=== PATIENT | female | born 1950 | race Caucasian/White ===

== ENCOUNTER 2021-07-17 09:35 | Emergency (ER) | payer MEDICARE, BC ==
[2021-07-17 09:51] VITALS: BP 145/64; PULSE 85
[2021-07-17] MEDS: Sodium Chloride 0.9% 10 ML Syringe FLUSH PRN (09:56)
[2021-07-17] MEDS: Sodium Chloride 0.9% 1,000 ML IV ONE (09:56)
--- NOTE | 2021-07-17 09:56 | EDM.PDOC ---
ED HPI GENERAL MEDICAL PROBLEM - General Chief Complaint: Gastrointestinal Problem Stated Complaint: NAUSEA,S/P KNEE SURGERY Time Seen by Provider: 07/17/21 09:39 Source of Information: Reports: Patient, Family - History of Present Illness INITIAL COMMENTS - FREE TEXT/NARRATIVE: Mar, 71-year-old female, brought here by family with complaints of nausea and dehydration. She underwent right knee replacement on June by Dr. Gian nj at [facility]. She was discharged home on Sunday and has had increased nausea abdominal discomfort likely due to poor intake in conjunction with oxycodone being taken orally. She has chronic renal failure and her daughter states they were very hesitant to discharge her on the but then felt it was appropriate as she was able to maintain intake. She is Covid negative for the test process for her surgery. She has had no other symptoms other than significant dry mouth which is likely attributed to anesthesia, oxycodone, and her history of Sjogren's syndrome with poor oral intake. She had a normal bowel movement today and states her urine has been appearing normal. Onset: Gradual Onset Date: 07/15/21 Duration: Day(s):, Getting Worse Location: Reports: Abdomen Quality: Reports: Pressure Severity: Severe Improves with: Reports: None Worsens with: Reports: Movement - Related Data Allergies Allergy/AdvReac Type Severity Reaction Status Date / Time aspirin Allergy Other Verified 07/17/21 10:04 promethazine HCl Allergy Anaphylactic Verified 07/17/21 10:04 [From Phenergan] Shock Home Meds: Home Meds ALPRAZolam [Alprazolam] 0.125 - 0.25 tab PO TID PRN 08/04/15 [History] Calcium Carbonate/Vitamin D3 [Calcium 500 + Vit D 400] 1 tab PO BIDMEALS [History] Metoprolol Succinate [Toprol XL] 50 mg PO DAILY 08/04/15 [History] Rosuvastatin Calcium [Crestor] 10 tab PO BEDTIME 08/04/15 [History] Acetaminophen 650 mg PO Q6H PRN 07/17/21 [History] Apixaban [Eliquis] 2.5 mg PO BID 07/17/21 [History] Cranberry Fruit Extract [Cranberry] 425 mg PO DAILY 07/17/21 [History] Denosumab [Prolia] 60 mg SQ ASDIRECTED 07/17/21 [History] Escitalopram Oxalate [Lexapro] 5 mg PO BEDTIME 07/17/21 [History] Hydroxychloroquine [Plaquenil] 200 mg PO MOWEFRSA 07/17/21 [History] Memantine HCl [Namenda] 10 mg PO BID 07/17/21 [History] Naloxone HCl [Narcan] 1 spray ALLEN ASDIRECTED PRN 07/17/21 [History] Ondansetron [Ondansetron Odt] 4 mg PO Q6H 2 Days #8 tab.rapdis 07/17/21 [Rx] Pantoprazole Sodium [Protonix] 40 mg PO ACBREAKFAST 07/17/21 [History] Sennosides/Docusate Sodium [Senna Plus 8.6-50 mg Tablet] 1 tab PO BID 07/17/21 [History] oxyCODONE 5 - 10 mg PO Q4H PRN 07/17/21 [History] polyethylene glycoL 3350 [MiraLAX] 1 pkt PO DAILY PRN 07/17/21 [History] traZODone 50 mg PO BEDTIME 07/17/21 [History] Past Medical History Cardiovascular History: Reports: CAD, Heart Failure, High Cholesterol Gastrointestinal History: Reports: Gastritis, GERD Other Gastrointestinal History: Casillas's esophagus Genitourinary History: Reports: Other (See Below) Other Genitourinary History: Chronic kidney disease, hypertensive kidney disease Musculoskeletal History: Reports: Osteoarthritis Other Musculoskeletal History: osteopenia Neurological History: Reports: Other (See Below) (mild cognitive impairment, Sjogrens) Other Psychiatric History: insomnia, high risk medication use Other Hematologic History: Sjogren's disease Other Dermatologic History: keratosis - Past Surgical History Musculoskeletal Surgical History: Reports: Knee Replacement - Past Imaging History Past Imaging History: Reports: MRI, Xray Social & Family History - Family History Family Medical History: No Pertinent Family History ED ROS GENERAL - Review of Systems Review Of Systems: Comprehensive ROS is negative, except as noted in HPI. ED EXAM, GENERAL - Physical Exam Exam: See Below Free Text/Narrative:: Alert, oriented, seeming somewhat tired. There is no cyanosis nor pallor noted. She has dry tacky oral membranes combination of her medication and Sjogren's syndrome. PERRLA no icterus no injection. Neck is soft supple with no lymphadenopathy JVD or bruit appreciated. Thorax is clear mildly diminished basis with no wheezes nor crackles. Cardiac is S1-S2 with no appreciated murmur. Abdomen is soft bowel sounds are present there is pressure over the epigastric region with mild nausea complained of. Right lower extremity has compression over a intact dressing to the anterior right knee with +2 edema at the ankle. Left lower extremity is benign in any findings with +1 edema at the most. Skin is warm and dry to both lower extremities. Course - Vital Signs Last Recorded V/S: Last Vital Signs Temp 97.6 F 07/17/21 09:45 Pulse 85 07/17/21 09:45 Resp 20 07/17/21 09:45 BP 145/64 H 07/17/21 09:45 Pulse Ox 98 07/17/21 09:45 - Orders/Labs/Meds Orders: Active Orders 24 hr Category Date Time Status Peripheral IV Care [RC] . DIRECTED Care 07/17/21 09:41 Active CULTURE URINE [RM] Stat Lab 07/17/21 10:29 Received Sodium Chloride 0.9% [Saline Flush] Med 07/17/21 09:40 Active 10 ml FLUSH Q8HR PRN Peripheral IV Insertion Adult [OM.PC] Stat Oth 07/17/21 09:41 Ordered Medication Orders Sodium Chloride (Sodium Chloride 0.9% 10 Ml Syringe) 10 ml FLUSH Q8HR PRN PRN Reason: keep vein open Last Admin: 07/17/21 09:56 Dose: 10 ml Documented by: MARCELA Labs: Laboratory Tests 07/17/21 07/17/21 07/17/21 Range/Units 09:50 09:50 09:50 WBC 9.35 (5.00-10.00) 10^3/uL RBC 3.17 L (3.80-5.50) 10^6/uL Hgb 9.1 L (12.0-16.0) g/dL Hct 28.0 L (37.0-47.0) % MCV 88.3 (82.0-92.0) fL MCH 28.7 (27.0-31.0) pg MCHC 32.5 (32.0-36.0) g/dL RDW 12.5 (11.5-14.5) % Plt Count 126 L (150-400) 10^3/uL MPV 10.6 H (7.4-10.4) fL Immature Gran % (Auto) 0.3 (0.0-5.0) % Neut % (Auto) 89.6 H (50.0-70.0) % Lymph % (Auto) 3.0 L (20.0-40.0) % [place] % (Auto) 5.5 (2.0-8.0) % Eos % (Auto) 1.5 (1.0-3.0) % Baso % (Auto) 0.1 (0.0-1.0) % Neut # (Auto) 8.38 H (2.50-7.00) 10^3/uL Lymph # (Auto) 0.28 L (1.00-4.00) 10^3/uL [place] # (Auto) 0.51 (0.10-0.80) 10^3/uL Eos # (Auto) 0.14 (0.10-0.30) 10^3/uL Baso # (Auto) 0.01 (0.00-0.10) 10^3/uL Immature Gran # (Auto) 0.03 (0.00-0.50) 10^3/uL Sodium 131 L (136-145) mmol/L Potassium 4.1 (3.5-5.1) mmol/L Chloride 97 L (98-107) mmol/L Carbon Dioxide 23.6 (21.0-32.0) mmol/L Anion Gap 14.5 (5-15) mmol/L BUN 16 (7-18) mg/dL Creatinine 0.86 (0.51-1.17) mg/dL Est Cr Clr Drug Dosing TNP Estimated GFR (MDRD) > 60 mL/min Glucose 113 (70-140) mg/dL Calcium 8.4 L (8.7-10.3) mg/dL Total Bilirubin 0.7 (0.2-1.0) mg/dL AST 31 (15-37) U/L ALT 16 (14-63) U/L Alkaline Phosphatase 44 L (46-116) U/L B-Natriuretic Peptide 380 H (0-100) pg/mL Total Protein 6.2 L (6.4-8.2) g/dL Albumin 2.84 L (3.40-5.00) g/dL Specimen Type Urine Color (YELLOW) Urine Appearance (CLEAR) Urine pH (5.0-9.0) Ur Specific [place] (1.005-1.030) Urine Protein (NEGATIVE) mg/dL Urine Glucose (UA) (NEGATIVE) mg/dL Urine Ketones (NEGATIVE) mg/dL Urine Occult Blood (NEGATIVE) Urine Nitrite (NEGATIVE) Urine Bilirubin (NEGATIVE) Urine Urobilinogen (0.2-1.0) E.U./dL Ur Leukocyte Esterase (NEGATIVE) Urine RBC (0-5) /HPF Urine WBC (0-5) /HPF Ur Epithelial Cells /LPF Urine Bacteria (NONE TO FEW) /HPF 07/17/21 Range/Units 10:29 WBC (5.00-10.00) 10^3/uL RBC (3.80-5.50) 10^6/uL Hgb (12.0-16.0) g/dL Hct (37.0-47.0) % MCV (82.0-92.0) fL MCH (27.0-31.0) pg MCHC (32.0-36.0) g/dL RDW (11.5-14.5) % Plt Count (150-400) 10^3/uL MPV (7.4-10.4) fL Immature Gran % (Auto) (0.0-5.0) % Neut % (Auto) (50.0-70.0) % Lymph % (Auto) (20.0-40.0) % [place] % (Auto) (2.0-8.0) % Eos % (Auto) (1.0-3.0) % Baso % (Auto) (0.0-1.0) % Neut # (Auto) (2.50-7.00) 10^3/uL Lymph # (Auto) (1.00-4.00) 10^3/uL [place] # (Auto) (0.10-0.80) 10^3/uL Eos # (Auto) (0.10-0.30) 10^3/uL Baso # (Auto) (0.00-0.10) 10^3/uL Immature Gran # (Auto) (0.00-0.50) 10^3/uL Sodium (136-145) mmol/L Potassium (3.5-5.1) mmol/L Chloride (98-107) mmol/L Carbon Dioxide (21.0-32.0) mmol/L Anion Gap (5-15) mmol/L BUN (7-18) mg/dL Creatinine (0.51-1.17) mg/dL Est Cr Clr Drug Dosing Estimated GFR (MDRD) mL/min Glucose (70-140) mg/dL Calcium (8.7-10.3) mg/dL Total Bilirubin (0.2-1.0) mg/dL AST (15-37) U/L ALT (14-63) U/L Alkaline Phosphatase (46-116) U/L B-Natriuretic Peptide (0-100) pg/mL Total Protein (6.4-8.2) g/dL Albumin (3.40-5.00) g/dL Specimen Type Urincc Urine Color Yellow (YELLOW) Urine Appearance Clear (CLEAR) Urine pH 7.0 (5.0-9.0) Ur Specific [place] 1.015 (1.005-1.030) Urine Protein Negative (NEGATIVE) mg/dL Urine Glucose (UA) Negative (NEGATIVE) mg/dL Urine Ketones Negative (NEGATIVE) mg/dL Urine Occult Blood Negative (NEGATIVE) Urine Nitrite Negative (NEGATIVE) Urine Bilirubin Negative (NEGATIVE) Urine Urobilinogen 0.2 (0.2-1.0) E.U./dL Ur Leukocyte Esterase Trace H (NEGATIVE) Urine RBC Not seen (0-5) /HPF Urine WBC 5-10 H (0-5) /HPF Ur Epithelial Cells Few /LPF Urine Bacteria Few (NONE TO FEW) /HPF Meds: Medications Generic Name Dose Route Start Last Admin Trade Name Freq PRN Reason Stop Dose Admin Sodium Chloride 10 ml 07/17/21 09:40 07/17/21 09:56 Sodium Chloride 0.9% 10 Ml Syringe FLUSH 10 ml Q8HR PRN Administration keep vein open Discontinued Medications Generic Name Dose Route Start Last Admin Trade Name Freq PRN Reason Stop Dose Admin Acetaminophen 1,000 mg 07/17/21 10:40 07/17/21 10:46 Acetaminophen 500 Mg Tab PO 07/17/21 10:41 1,000 mg ONETIME ONE Administration Sodium Chloride 1,000 mls @ 999 mls/hr 07/17/21 09:41 07/17/21 09:56 Normal Saline IV 07/17/21 10:41 999 mls/hr .BOLUS ONE Administration Ondansetron HCl 4 mg 07/17/21 09:53 07/17/21 09:57 Ondansetron 4 Mg/2 Ml Sdv IVPUSH 07/17/21 09:54 4 mg ONETIME ONE Administration Ondansetron HCl 12 mg 07/17/21 10:42 07/17/21 10:56 Ondansetron 4 Mg Tab.Dis PO 07/17/21 10:43 Not Given ONETIME ONE - Re-Assessments/Exams Free Text/Narrative Re-Assessment/Exam: 07/17/21 10:53 History of anxiety seemingly worsened with procedures and hospitalization may be contributing to this as well as GI irritation secondary of oxycodone with limited intake. This was all discussed with her daughter and family members. They acknowledge understanding. Departure - Departure Time of Disposition: 10:50 Disposition: Home, Self-Care 01 Condition: Good Clinical Impression: Status post right knee replacement, Postoperative anemia, Nausea - Discharge Information *PRESCRIPTION DRUG MONITORING PROGRAM REVIEWED*: Not Applicable *COPY OF PRESCRIPTION DRUG MONITORING REPORT IN PATIENT SIVA: Not Applicable Prescriptions: Ondansetron [Ondansetron Odt] 4 mg PO Q6H 2 Days #8 tab.rapdis Instructions: Nausea, Adult, [place], Pain Medicine Instructions, [id number] Referrals: Marina Quinn PA-C [Primary Care Provider] - Forms: ED Department Discharge Additional Instructions: Your lab test today show that your kidney function is within normal limits and there is no evidence of dehydration. The heart failure number is slightly elevated as it was in the hospital and should return to your baseline/normal over the next 24 to 48 hours. The Zofran we gave seems to be helping your nausea and will provide you with doses to be taken as needed, 6 to 8 hours, after your discharge. You can limit the use of the oxycodone as you seem to be in good management of your pain at this time, focusing on Tylenol. You may reinstitute your Xanax for anxiety. If you were to use that along with your oxycodone it would add to the sedation aspect you experience with the oxycodone alone. As long as her pain remains controlled as is, since she has had no narcotics since last night, hopefully Tylenol and icing/heating the area as directed on your discharge should keep this within limits. Continue all of your home medications as directed other than limiting the oxycodone is much as possible. Follow-up as directed for recheck on your laboratory analysis, kidney function, and BNP, as you are scheduled for this upcoming week. Contact the surgical center if any concerns with the knee specifically. Sepsis Event Note (ED) - Focused Exam Vital Signs: Vital Signs Temp Pulse Resp BP Pulse Ox 07/17/21 09:45 97.6 F 85 20 145/64 H 98 - Problem List & Annotations (1) Dehydration SNOMED Code(s): 04946442 Code(s): E86.0 - DEHYDRATION Status: Acute Priority: High Current Visit: Yes (2) Status post right knee surgery SNOMED Code(s): 662645291 Code(s): Z98.890 - OTHER SPECIFIED POSTPROCEDURAL STATES Status: Acute Priority: High Current Visit: Yes (3) Status post right knee replacement SNOMED Code(s): 8388602901060, 145334628, 9221099125122 Code(s): Z96.651 - PRESENCE OF RIGHT ARTIFICIAL KNEE JOINT Status: Acute Priority: High Current Visit: Yes (4) Nausea SNOMED Code(s): 080083027 Code(s): R11.0 - NAUSEA Status: Acute Priority: High Current Visit: Yes (5) Postoperative anemia SNOMED Code(s): 808187179, 468907375 Code(s): D64.9 - ANEMIA, UNSPECIFIED Status: Acute Priority: High Current Visit: Yes - Problem List Review Problem List Initiated/Reviewed/Updated: Yes - My Orders Last 24 Hours: My Active Orders 07/17/21 09:40 Sodium Chloride 0.9% [Saline Flush] 10 ml FLUSH Q8HR PRN 07/17/21 09:41 Peripheral IV Care [RC] . DIRECTED Peripheral IV Insertion Adult [OM.PC] Stat 07/17/21 10:29 CULTURE URINE [RM] Stat - Assessment/Plan Last 24 Hours: My Active Orders 07/17/21 09:40 Sodium Chloride 0.9% [Saline Flush] 10 ml FLUSH Q8HR PRN 07/17/21 09:41 Peripheral IV Care [RC] . DIRECTED Peripheral IV Insertion Adult [OM.PC] Stat 07/17/21 10:29 CULTURE URINE [RM] Stat Plan: Your lab test today show that your kidney function is within normal limits and there is no evidence of dehydration. The heart failure number is slightly elevated as it was in the hospital and should return to your baseline/normal over the next 24 to 48 hours. The Zofran we gave seems to be helping your nausea and will provide you with doses to be taken, 6 to 8 hours, as needed after your discharge. You can limit the use of the oxycodone as you seem to be in good management of your pain at this time, focusing on Tylenol. You may reinstitute your Xanax for anxiety. If you were to use that along with your oxycodone it would add to the sedation aspect you experience with the oxycodone alone. As long as her pain remains controlled as is, since she has had no narcotics since last night, hopefully Tylenol and icing/heating the area as directed on your discharge should keep this within limits. Continue all of your home medications as directed other than limiting the oxycodone is much as possible. Follow-up as directed for recheck on your laboratory analysis, kidney function, and BNP, as you are scheduled for this upcoming week. Contact the surgical center if any concerns with the knee specifically.
[2021-07-17] MEDS: Ondansetron 4 MG/2 ML SDV IVPUSH ONE (09:57)
[2021-07-17 10:15] LABS: ANION GAP 14.5 mmol/L (5-15); CHLORIDE,CL 97 mmol/L (98-107); SODIUM,NA 131 mmol/L (136-145)
[2021-07-17] MEDS: Acetaminophen 500 MG Tab PO ONE (10:46)
[2021-07-17] MEDS: Ondansetron 4 MG Tab.DIS PO ONE (10:56)
== END 2021-07-17 11:10 | disposition home or self-care (01) ==
LOC: KA.ED 09:35
DX: R11.0 Nausea (principal); I13.0 Hypertensive heart and chronic kidney disease with heart failure and stage 1 through stage 4 chronic kidney disease, or unspecified chronic kidney disease; N18.9 Chronic kidney disease, unspecified; I50.9 Heart failure, unspecified; D63.1 Anemia in chronic kidney disease; I25.10 Atherosclerotic heart disease of native coronary artery without angina pectoris; E78.00 Pure hypercholesterolemia, unspecified; Z79.01 Long term (current) use of anticoagulants; Z88.8 Allergy status to other drugs, medicaments and biological substances; Z79.899 Other long term (current) drug therapy; Z96.651 Presence of right artificial knee joint
CPT/HCPCS: 36415; 80053; 81001; 83880; 85025; 87086; 96374; 99284; A9270; J2405; J7030

== ENCOUNTER 2024-05-19 21:05 | Emergency (ER) | payer MEDICARE, BC ==
[2024-05-19 21:20] LABS: BILIRUBIN,URINE NEGATIVE (NEGATIVE); COLOR,URINE YELLOW (YELLOW); GLUCOSE,URINE NEGATIVE (NEGATIVE); KETONES,URINE NEGATIVE (NEGATIVE); LEUKOCYTE ESTERASE,URINE NEGATIVE (NEGATIVE); NITRITE,URINE NEGATIVE (NEGATIVE); OCCULT BLOOD,URINE TRACE-INTACT (NEGATIVE); PH,URINE 6.5 (5.0-9.0); PROTEIN,URINE TRACE mg/dL (NEGATIVE); UROBILINOGEN,URINE 0.2 E.U./dL (0.2-1.0)
[2024-05-19] MEDS ORDERED: Sodium Chloride 0.9% 10 ML Syringe FLUSH PRN (21:22)
[2024-05-19 21:30] LABS: BASOPHILS ABSOLUTE AUTO 0.03 10^3/uL (0.00-0.10); BASOPHILS PERCENT AUTO 0.3 % (0.0-1.0); EOSINOPHILS ABSOLUTE AUTO 0.14 10^3/uL (0.10-0.30); EOSINOPHILS PERCENT AUTO 1.3 % (1.0-3.0); HEMATOCRIT 38.2 % (37.0-47.0); HEMOGLOBIN 12.2 g/dL (12.0-16.0); IMMATURE GRAN ABSOLUTE AUTO 0.02 10^3/uL (0.00-0.50); IMMATURE GRAN PERCENT AUTO 0.2 % (0.0-5.0); LYMPHOCYTES ABSOLUTE AUTO 0.26 10^3/uL (1.00-4.00); LYMPHOCYTES PERCENT AUTO 2.4 % (20.0-40.0); MEAN CORPUSCULAR HEMOGLOBIN 27.5 pg (27.0-31.0); MEAN CORPUSCULAR HGB CONC 31.9 g/dL (32.0-36.0); MEAN CORPUSCULAR VOLUME 86.2 fL (82.0-92.0); MEAN PLATELET VOLUME 9.8 fL (7.4-10.4); MONOCYTES ABSOLUTE AUTO 0.43 10^3/uL (0.10-0.80); MONOCYTES PERCENT AUTO 3.9 % (2.0-8.0); NEUTROPHILS ABSOLUTE AUTO 10.17 10^3/uL (2.50-7.00); NEUTROPHILS PERCENT AUTO 91.9 % (50.0-70.0); PLATELET COUNT,PLT 141 10^3/uL (150-400); RED BLOOD CELL COUNT 4.43 10^6/uL (3.80-5.50); RED CELL DISTRIBUTION WIDTH 13.1 % (11.5-14.5); WHITE BLOOD CELL COUNT,WBC 11.05 10^3/uL (5.00-10.00)
[2024-05-19 21:31] LABS: APPEARANCE,URINE SLIGHTLY CLOUDY (CLEAR)
[2024-05-19 21:33] LABS: BACTERIA,URINE RARE /HPF (NONE TO FEW); EPITHELIAL CELLS,URINE FEW /LPF; MUCUS,URINE RARE /LPF (NEGATIVE); WBC,URINE 0-5 /HPF (0-5)
[2024-05-19] MEDS: Sodium Chloride 0.9% 1,000 ML IV ONE (21:41)
[2024-05-19 21:46] LABS: ALBUMIN 3.55 g/dL (3.40-5.00); ANION GAP 13.8 mmol/L (5-15); BILIRUBIN TOTAL 0.4 mg/dL (0.2-1.0); CALCIUM 9.2 mg/dL (8.7-10.3); CARBON DIOXIDE,CO2 26.9 mmol/L (21.0-32.0); CREATININE 1.2 mg/dL (0.51-1.17); EST CRCL DRUG DOSING (CG) 33.02 mL/min; POTASSIUM,K 3.7 mmol/L (3.5-5.1); PROTEIN TOTAL,TP 7.1 g/dL (6.4-8.2)
[2024-05-19] MEDS: Iopamidol 755 Mg/ML 100 ML Bottle IV ONE (22:44)
[2024-05-19] MEDS: Sodium Chloride 0.9% 50 ML IV SCH (22:44)
[2024-05-20 01:15] VITALS: BP 140/68; PULSE 76
== END 2024-05-20 00:40 | disposition home or self-care (01) ==
LOC: KA.ED 21:05
DX: K57.90 Diverticulosis of intestine, part unspecified, without perforation or abscess without bleeding (principal); K44.9 Diaphragmatic hernia without obstruction or gangrene; K21.9 Gastro-esophageal reflux disease without esophagitis; N28.1 Cyst of kidney, acquired; N20.0 Calculus of kidney; N18.31 Chronic kidney disease, stage 3a; I25.10 Atherosclerotic heart disease of native coronary artery without angina pectoris; E78.00 Pure hypercholesterolemia, unspecified; Z90.710 Acquired absence of both cervix and uterus; Z90.49 Acquired absence of other specified parts of digestive tract; Z79.899 Other long term (current) drug therapy; Z88.6 Allergy status to analgesic agent; Z88.8 Allergy status to other drugs, medicaments and biological substances
CPT/HCPCS: 74177; 80053; 81001; 82150; 83690; 85025; 96360; 99284; 99284-25; J3490; J7030; Q9967